=== PATIENT | male | born 1945 | race Caucasian/White ===

== ENCOUNTER 2017-07-03 17:29 | Emergency (ER) | payer MEDICARE, BC ==
--- NOTE | 2017-07-03 18:20 | ED Physician Documentation ---
PD HPI ABD PAIN - Stated complaint Stated Complaint: CONSTIPATION - Chief complaint Chief Complaint: Abd Pain - History obtained from History obtained from: Patient, Family () - History of Present Illness Timing - onset: Other (72-year-old gentleman with history of intermittent chronic constipation for which he usually takes a stool softener and occasionally a laxative. He also has a partial T2 spinal cord injury from a prior surgery at [facility] about 10 years ago. Last 5 days has had mild constipation with decreased output but today developed lack of output except for flatus and there is associated left lower quadrant pain. He did have a small bowel movement in the waiting room here which improved but did not completely get rid of his symptoms. There is no associated nausea or vomiting.) Review of Systems Ten Systems: 10 systems reviewed and negative Constitutional: denies: Fever, Chills GI: reports: Abdominal Pain. denies: Nausea, Vomiting : reports: Unable to Void. denies: Dysuria PD PAST MEDICAL HISTORY - Past Medical History Cardiovascular: Hypertension, Other Respiratory: Sleep apnea, CPAP use Neuro: None Endocrine/Autoimmune: HyPOthyroidism GI: GERD : Other HEENT: None Psych: None Musculoskeletal: Other Derm: None - Past Surgical History Past Surgical History: Yes Ortho: Knee replacement Cardiovascular: Coronary stent HEENT: Cataracts, Tonsil/Adenoidectomy - Present Medications Home Medications: Ambulatory Orders Medication Instructions Recorded Confirmed Aspirin [Flakito] 325 mg PO DAILY 12/02/12 09/18/14 Atorvastatin Calcium [Lipitor] 40 mg PO DAILY 12/02/12 09/18/14 Ca Cmb No.1/Vit D3/B-6/FA/B12 1 each PO DAILY 12/02/12 09/18/14 [Vitamin D3 1,000 Unit Tablet] Calcium Citrate/Vitamin D3 1 each PO DAILY 12/02/12 09/18/14 [Citracal-Vit D 200 mg-250 Tab] Docusate Sodium [Col-Rite] 100 mg PO BID 12/02/12 09/18/14 Ezetimibe [Zetia] 10 mg PO QD 12/02/12 09/18/14 Levothyroxine Sodium [Synthroid] 112 mcg PO DAILY 12/02/12 09/18/14 Lutein 20 mg PO DAILY 12/02/12 09/18/14 Metoprolol Succinate [Toprol Xl] 25 mg PO BID 12/02/12 09/18/14 Multivitamin [Multivitamins] 1 each PO DAILY 12/02/12 09/18/14 Omeprazole 40 mg PO DAILY 12/02/12 09/18/14 Pregabalin [Lyrica] 200 mg PO BID 12/02/12 09/18/14 Sennosides 8.6 mg PO BID 12/02/12 09/18/14 Sildenafil Citrate [Viagra] 25 mg PO ONCE 12/02/12 09/18/14 Testosterone Enanthate 300 mg IM ONCE 12/02/12 09/18/14 [Delatestryl] Polyethylene Glycol 3350 [Miralax] 17 gm PO DAILY PRN #1 bottle 07/03/17 - Allergies Allergies/Adverse Reactions: Allergies Allergy/AdvReac Type Severity Reaction Status Date / Time iodine AdvReac Dizziness Verified 07/03/17 17:44 - Social History Does the pt smoke?: No Smoking Status: Never smoker Does the pt drink ETOH?: No Does the pt have substance abuse?: No - Immunizations Immunizations are current?: Yes - POLST Patient has POLST: No PD ED PE NORMAL - Vitals Vital signs reviewed: Yes - General General: Alert and oriented X 3, No acute distress - Cardiac Cardiac: RRR, No murmur - Respiratory Respiratory: No respiratory distress, Clear bilaterally - Abdomen Abdomen: Other (Quite tender on the left side, no surgical signs, diminished but not absent bowel tones) - Rectal Rectal: Other (No fecal impaction, brown stool in the vault, guaiac negative) - Derm Derm: Normal color, Warm and dry - Extremities Extremities: No deformity, No tenderness to palpate - Neuro Neuro: Alert and oriented X 3, Normal speech - Psych Psych: Normal mood, Normal affect Results - Vitals Vitals: Vital Signs - 24 hr 07/03/17 17:41 Temperature 36.5 C Heart Rate 106 H Respiratory 16 Rate Blood Pressure 146/87 H O2 Saturation 94 Oxygen O2 Source Room air - Labs Labs: Laboratory Tests 07/03/17 07/03/17 07/03/17 18:51 18:51 19:30 WBC 12.0 H RBC 4.52 L Hgb 14.7 Hct 44.0 MCV 97.5 H MCH 32.6 H MCHC 33.4 RDW 13.5 Plt Count 147 MPV 9.5 Neut # 10.4 H Lymph # 0.6 L [place] # 1.0 Eos # 0.0 Baso # 0.0 Absolute Nucleated RBC 0.02 Nucleated RBC % 0.1 Sodium 138 Potassium 4.1 Chloride 102 Carbon Dioxide 26 Anion Gap 10.0 BUN 30 H Creatinine 1.0 Estimated GFR (MDRD) 73 L Glucose 106 H Calcium 9.4 Total Bilirubin 0.9 AST 32 ALT 30 Alkaline Phosphatase 49 Total Protein 7.3 Albumin 4.1 Globulin 3.2 Albumin/Globulin Ratio 1.3 Lipase 23 Urine Color YELLOW Urine Clarity CLEAR Urine pH 6.0 Ur Specific [place] 1.025 Urine Protein NEGATIVE Urine Glucose (UA) NEGATIVE Urine Ketones NEGATIVE Urine Occult Blood TRACE-INTA Urine Nitrite NEGATIVE Urine Bilirubin NEGATIVE Urine Urobilinogen 0.2 (NORMAL) Ur Leukocyte Esterase NEGATIVE Ur Microscopic Review NOT INDICATED Urine Culture Comments NOT INDICATED - Rads (name of study) CT A/P Radiology: EMP read contemporaneously (Constipation, renal scarring, atherosclerosis, renal cyst needs f/u) PD MEDICAL DECISION MAKING - ED course ED course: 72-year-old gentleman with constipation, some left-sided abdominal tenderness. He does not have an impaction nor is he guaiac positive. He was administered IV fluids and morphine here and on recheck prior to discharge was nontender. CT shows no acute process other than the constipation, although the renal cyst was discussed with him and his in follow-up was advised. He was administered 1 bottle of magnesium citrate here. Departure - Departure Disposition: 01 Home, Self Care Clinical Impression: Constipation Qualifiers: Constipation type: slow transit constipation Qualified Code(s): K59.01 - Slow transit constipation Condition: Good Record reviewed to determine appropriate education?: Yes Instructions: ED Constipation Prescriptions: Polyethylene Glycol 3350 [Miralax] 17 gm PO DAILY PRN #1 bottle PRN Reason: Constipation Comments: Drink plenty fluids, 8 glasses of water a day, follow-up with your doctor, discuss repeat CAT scan in 1 year to assess stability of right renal cyst. Return if worse.
[2017-07-03] MEDS ORDERED: SODIUM CHLORIDE 0.9% 1,000 ML IV ONE (18:29)
[2017-07-03 18:57] LABS: BASOPHILS % (AUTO) 0.2 %; EOSINOPHILS % (AUTO) 0.1 %; HGB - HEMOGLOBIN 14.7 g/dL (14.0-18.0); LYMPHOCYTES # (AUTO) 0.6 10^3/uL (1.5-3.5); LYMPHOCYTES % (AUTO) 4.6 %; MEAN CORPUSCULAR HEMOGLOBIN 32.6 pg (27.0-31.0); MEAN CORPUSCULAR HGB CONC 33.4 g/dL (32.0-36.0); MEAN CORPUSCULAR VOLUME 97.5 fL (80.0-94.0); MEAN PLATELET VOLUME 9.5 fL (7.4-11.4); MONOCYTES % (AUTO) 8.4 %; NEUTROPHILS # (AUTO) 10.4 10^3/uL (1.5-6.6); NEUTROPHILS % (AUTO) 86.7 %; PLT - PLATELET COUNT 147 10^3/uL (130-450); RED BLOOD COUNT 4.52 10^6/uL (4.70-6.10); RED CELL DISTRIBUTION WIDTH 13.5 % (12.0-15.0)
[2017-07-03 19:10] LABS: ALBUMIN 4.1 g/dL (3.2-5.5); ALBUMIN/GLOBULIN RATIO 1.3 (1.0-2.2); BILIRUBIN,TOTAL 0.9 mg/dL (0.2-1.0); CALCIUM 9.4 mg/dL (8.5-10.3); TOTAL PROTEIN 7.3 g/dL (6.7-8.2)
[2017-07-03] MEDS ORDERED: IOPAMIDOL-300 100 ML VIAL ONE (19:21)
[2017-07-03 19:38] LABS: BILIRUBIN,URINE NEGATIVE (NEGATIVE); GLUCOSE, URINE (UA) NEGATIVE (NEGATIVE); KETONES,URINE (UA) NEGATIVE (NEGATIVE); LEUKOCYTE ESTERASE, URINE NEGATIVE (NEGATIVE); NITRITE,URINE NEGATIVE (NEGATIVE); OCCULT BLOOD,URINE TRACE-INTA (NEGATIVE); PROTEIN,URINE NEGATIVE (NEGATIVE); UROBILINOGEN,URINE 0.2 (NORMAL) E.U./dL (NORMAL)
[2017-07-03 19:39] LABS: CLARITY,URINE CLEAR (CLEAR)
[2017-07-03] MEDS ORDERED: IOPAMIDOL-300 100 ML VIAL IVP ONE (19:54)
[2017-07-03] MEDS ORDERED: MORPHINE 10 MG/ML VIAL IVP STA (20:32)
--- NOTE | 2017-07-03 20:38 | CT Report ---
EXAM: CT ABDOMEN AND PELVIS EXAM DATE: 07/03/2017 07:57 PM. CLINICAL HISTORY: Left lower quadrant pain COMPARISONS: Abdomen and pelvis CT 10/05/2006. TECHNIQUE: Routine helical CT imaging was performed through the abdomen and pelvis. IV contrast: 100 cc Isovue 300. Enteric contrast: None. Reconstructions: Coronal and sagittal. In accordance with CT protocol optimization, one or more of the following dose reduction techniques w ere utilized for this exam: automated exposure control, adjustment of mA and/or KV based on patient s ize, or use of iterative reconstructive technique. FINDINGS: Lung Bases: Minimal lingular diskoid atelectasis. Coronary atherosclerosis. Liver: Normal. No masses. Gallbladder/Bile Ducts: Unremarkable. Spleen: Normal in contour with minimal 3 mm hypodensity, stable over the 10 year interval. Pancreas: Mild pancreatic atrophy. Adrenal Glands: Normal. Kidneys: There is a cyst at the upper pole of the right kidney measuring up to 5.9 cm with a thin sep tation questioned. This is mildly increased in size compared to the prior examination. No hydronephro sis. Scarring redemonstrated at the upper pole of the left kidney with a 10 mm exophytic cyst anterio rly. Peritoneal Cavity/Bowel: The stomach is unremarkable. There are no dilated loops of large or small in testine. Large amount of stool within the colon. No focal inflammation. Pelvic Organs: Normal. The bladder and visualized pelvic organs are within normal limits. Vasculature: Atherosclerosis without abdominal aortic aneurysm. Bones: No significant abnormality. Other: None. IMPRESSION: 1. No dilated bowel or focal inflammation. Large amount of stool within the colon. 2. Renal scarring on the left at the upper pole, similar to the prior exam. 3. Atherosclerosis. 4. Mildly complex right renal cyst at the upper pole although this is only mildly increased in size o kenny the 10 year interval. Considering this, the lesion is probably benign although a follow-up study is suggested in 12 months. [facility] Referring Provider Line: [phone] SITE ID: [id number]
[2017-07-03] MEDS ORDERED: MAGNESIUM CITRATE 296 ML BOTTLE PO STA (21:12)
[2017-07-03 21:29] VITALS: BP 139/72
== END 2017-07-03 21:37 | disposition home or self-care (01) ==
LOC: ED 17:29
DX: K59.01 Slow transit constipation (principal); I10 Essential (primary) hypertension; E03.9 Hypothyroidism, unspecified; Z96.659 Presence of unspecified artificial knee joint; Z95.5 Presence of coronary angioplasty implant and graft
CPT/HCPCS: 36415; 51798; 74177; 80053; 81003; 83690; 85025; 96361; 96374; 99283; 99284; A9270; Q9967; 81001; 87086

== ENCOUNTER 2019-03-23 11:09 | Outpatient (CLI) | payer MEDICARE, BC | END 2019-03-23 11:10 | disposition short-term general hospital (02) | LOC: EMS 11:09 | PROVIDERS: ATTEND Surgery | DX: R42 Dizziness and giddiness (principal) | CPT/HCPCS: A0425; A0427 ==

== ENCOUNTER 2019-05-12 23:09 | Outpatient (CLI) | payer MEDICARE, BC | END 2019-05-12 23:10 | disposition short-term general hospital (02) | LOC: EMS 23:09 | PROVIDERS: ATTEND Surgery | DX: R06.02 Shortness of breath (principal) | CPT/HCPCS: A0425; A0429; A0888 ==

== ENCOUNTER 2019-05-20 12:29 | Outpatient (CLI) | payer MEDICARE, BC | END 2019-05-20 12:30 | disposition short-term general hospital (02) | LOC: EMS 12:29 | PROVIDERS: ATTEND Surgery | DX: R53.1 Weakness (principal); R68.83 Chills (without fever); R06.02 Shortness of breath | CPT/HCPCS: A0425; A0429 ==

== ENCOUNTER 2019-05-29 15:36 | Outpatient (CLI) | payer MEDICARE, BC | END 2019-05-30 15:37 | disposition short-term general hospital (02) | LOC: EMS 15:36 | PROVIDERS: ATTEND Surgery | DX: R06.02 Shortness of breath (principal) | CPT/HCPCS: A0425; A0429 ==